=== PATIENT | male | born 1975 | race American Indian/Alaskan Native ===

== ENCOUNTER 2019-05-27 09:11 | Emergency (ER) | payer MEDICAID ==
[2019-05-27] MEDS ORDERED: HYDROGEN PEROXIDE TP ONE (09:45)
--- NOTE | 2019-05-27 09:45 | Emergency Department Report ---
ED ENT HPI - General Chief complaint: Earache Stated complaint: R EAR BLOCKED Time Seen by Provider: 05/27/19 09:35 Source: patient Mode of arrival: Ambulatory Limitations: No Limitations - History of Present Illness Initial comments: Patient is a 43-year-old male since the emergency room with complaints of his right ear being "plugged" for a week. He denies any ear pain, drainage, or fever. He does not report any foreign body. He states he has had some difficulty hearing from the right ear. He states he tried [id number] eardrops without much relief. He states he did not try any removal as he did not want to put anything inside the ear. He has a past medical history is HTN, CVA, seizure disorder. - Related Data Previous Rx's Medication Instructions Recorded Last Taken Type Aspirin 325 mg PO QDAY #30 tablet 03/27/14 Unknown Rx Lipase/Protease/Amylase [Pancreaze 1 each FEEDTUBE PRN PRN #30 capsule 03/27/[address] 10,500 Unit] Metoprolol [Lopressor TAB] 50 mg PO BID #60 tablet 03/27/14 Unknown Rx Pantoprazole [Protonix TAB] 40 mg PO QDAY #30 tablet 03/27/14 Unknown Rx Warfarin [Coumadin] 3 mg PO DAILY@1700 #30 tablet 03/27/14 Unknown Rx amLODIPine [Norvasc] 10 mg PO QDAY #30 tablet 03/27/14 Unknown Rx hydrALAZINE [Apresoline TAB] 50 mg PO Q8HR #90 tablet 03/27/14 Unknown Rx levETIRAcetam [Keppra ORAL LIQ] 500 mg PO BID #60 bottle 03/27/14 Unknown Rx Allergies Allergy/AdvReac Type Severity Reaction Status Date / Time No Known Allergies Allergy Verified 02/01/14 06:57 ED Dental HPI - General Chief complaint: Earache Stated complaint: R EAR BLOCKED Time Seen by Provider: 05/27/19 09:35 Source: patient Mode of arrival: Ambulatory Limitations: No Limitations - Related Data Previous Rx's Medication Instructions Recorded Last Taken Type Aspirin 325 mg PO QDAY #30 tablet 03/27/14 Unknown Rx Lipase/Protease/Amylase [Pancreaze 1 each FEEDTUBE PRN PRN #30 capsule 03/27/[address] 10,500 Unit] Metoprolol [Lopressor TAB] 50 mg PO BID #60 tablet 03/27/14 Unknown Rx Pantoprazole [Protonix TAB] 40 mg PO QDAY #30 tablet 03/27/14 Unknown Rx Warfarin [Coumadin] 3 mg PO DAILY@1700 #30 tablet 03/27/14 Unknown Rx amLODIPine [Norvasc] 10 mg PO QDAY #30 tablet 03/27/14 Unknown Rx hydrALAZINE [Apresoline TAB] 50 mg PO Q8HR #90 tablet 03/27/14 Unknown Rx levETIRAcetam [Keppra ORAL LIQ] 500 mg PO BID #60 bottle 03/27/14 Unknown Rx Allergies Allergy/AdvReac Type Severity Reaction Status Date / Time No Known Allergies Allergy Verified 02/01/14 06:57 ED Review of Systems ROS: Stated complaint: R EAR BLOCKED Other details as noted in HPI Comment: All other systems reviewed and negative ED Past Medical Hx - Past Medical History Previous Medical History?: Yes Hx Hypertension: Yes Hx CVA: Yes Hx Congestive Heart Failure: No Hx Diabetes: No Hx Asthma: No Hx COPD: No Hx HIV: No - Surgical History Past Surgical History?: Yes Hx Open Heart Surgery: No Hx Cholecystectomy: No Hx Appendectomy: No Hx Breast Surgery: No Additional Surgical History: shoulder surgery - Social History Smoking Status: Never Smoker Substance Use Type: Alcohol, Marijuana - Medications Home Medications: Home Medications Medication Instructions Recorded Confirmed Last Taken Type Aspirin 325 mg PO QDAY #30 tablet 03/27/14 Unknown Rx Lipase/Protease/Amylase [Pancreaze 1 each FEEDTUBE PRN PRN #30 capsule 03/27/14 Unknown Rx 10,500 Unit] Metoprolol [Lopressor TAB] 50 mg PO BID #60 tablet 03/27/14 Unknown Rx Pantoprazole [Protonix TAB] 40 mg PO QDAY #30 tablet 03/27/14 Unknown Rx Warfarin [Coumadin] 3 mg PO DAILY@1700 #30 tablet 03/27/14 Unknown Rx amLODIPine [Norvasc] 10 mg PO QDAY #30 tablet 03/27/14 Unknown Rx hydrALAZINE [Apresoline TAB] 50 mg PO Q8HR #90 tablet 03/27/14 Unknown Rx levETIRAcetam [Keppra ORAL LIQ] 500 mg PO BID #60 bottle 03/27/14 Unknown Rx ED Physical Exam - General Limitations: No Limitations General appearance: alert, in no apparent distress - Head Head exam: Present: atraumatic, normocephalic - Eye Eye exam: Present: normal appearance, PERRL, EOMI - ENT ENT exam: Present: normal orophraynx, mucous membranes moist, other (left TM and canal are normal, right canal with ear wax present not completely impacted still able to visualize part of the the right TM which appears normal, no TM perforation visuzlied) - Neurological Exam Neurological exam: Present: alert, oriented X3 - Psychiatric Psychiatric exam: Present: normal affect, normal mood - Skin Skin exam: Present: warm, dry, intact ED Course Vital Signs 05/27/19 05/27/19 09:16 11:21 Temperature 98.2 F Pulse Rate 61 60 Respiratory 16 16 Rate Blood Pressure 120/75 Blood Pressure 121/74 [Left] O2 Sat by Pulse 98 98 Oximetry - Ear Wax Removal Right Ear Ear Canal Irrigated by: other (PA-C) Ear Canal Irrigated With: warm saline with H2O2 using syringe/angiocath Results: Re-examined: cerumen removed completel TM Visible: TM(s) intact, normal appe Ear Canal: atraumatic Patient Tolerated Procedure: well Complications: no problems ED Medical Decision Making - Medical Decision Making Patient is a 43-year-old male since the emergency room with complaints of his right ear being "plugged" for a week. He denies any ear pain, drainage, or fever. He does not report any foreign body. He states he has had some difficulty hearing from the right ear. He states he tried [id number] eardrops without much relief. He states he did not try any removal as he did not want to put anything inside the ear. He has a past medical history is HTN, CVA, seizure disorder. on exam: left TM and canal are normal, right canal with ear wax present not completely impacted still able to visualize part of the the right TM which appears normal, no TM perforation visuzlied. ear wax removed completely per procedure note revealing a normal TM and canal. pt states his hearing is much better. advised pt to please follow up with primary care doctor in the next 2-3 days. Return to the emergency room for any new or worsening symptoms. Critical care attestation.: If time is entered above; I have spent that time in minutes in the direct care of this critically ill patient, excluding procedure time. ED Disposition Clinical Impression: Cerumen impaction Qualifiers: Laterality: right Qualified Code(s): H61.21 - Impacted cerumen, right ear Disposition: TO HOME OR SELFCARE Is pt being admited?: No Does the pt Need Aspirin: No Condition: Stable Instructions: Cerumen Impaction (ED) Additional Instructions: Please follow up with primary care doctor in the next 2-3 days. Return to the emergency room for any new or worsening symptoms. Referrals: [facility] MD STUART [Primary Care Provider] - 2-3 Days Time of Disposition: 10:48 Print Language: ARMENIAN
[2019-05-27] MEDS ORDERED: HYDROGEN PEROXIDE ONE (09:47)
[2019-05-27 11:22] VITALS: BP 121/74
== END 2019-05-27 11:21 | disposition home or self-care (01) ==
LOC: ED 09:11
DX: H61.21 Impacted cerumen, right ear (principal); I10 Essential (primary) hypertension; F12.10 Cannabis abuse, uncomplicated; Z79.82 Long term (current) use of aspirin; Z79.899 Other long term (current) drug therapy; Z86.73 Personal history of transient ischemic attack (TIA), and cerebral infarction without residual deficits